=== PATIENT | male | born 1995 | race Hispanic/Latino ===

== ENCOUNTER 2017-02-20 20:10 | Emergency (ER) | payer MEDICAID ==
[2017-02-20 20:35] VITALS: BP 133/80; PULSE 69; RESP 21; TEMP 99.2; O2SAT 99
--- NOTE | 2017-02-20 20:46 | ED PDOC ---
HPI: Altered Mental Status Time Seen by Provider: 02/20/17 20:13 Chief Complaint (Nursing): Anxiety Chief Complaint (Provider): Chest pain History Per: Patient Additional Complaint(s): Pt is a 21 yo male, no PMH, complains of having "transient" symptoms of feeling whole upper body heaviness that went away after 5-6 minutes followed by residual left arm numbness. Pt is visibly anxious in triage. Reported shallow breathing earlier with no acute SOB. Pt notes all symptoms occurred after having "heavy phone call with a friend." Past Medical History Reviewed: Nursing Documentation, Vital Signs Vital Signs: Last Vital Signs Temp 99.2 F 02/20/17 20:32 Pulse 69 02/20/17 20:32 Resp 21 02/20/17 20:32 BP 133/80 02/20/17 20:32 Pulse Ox 99 02/20/17 20:32 - Medical History PMH: No Chronic Diseases - Surgical History Surgical History: No Surg Hx - Family History Family History: States: No Known Family Hx - Living Arrangements Living Arrangements: With Family - Social History Current smoker - smoking cessation education provided: No Alcohol: Social Drugs: Denies - Allergies Allergies/Adverse Reactions: Allergies Allergy/AdvReac Type Severity Reaction Status Date / Time No Known Allergies Allergy Verified 02/20/17 20:32 Review of Systems ROS Statement: Except As Marked, All Systems Reviewed And Found Negative Cardiovascular: Positive for: Chest Pain, Palpitations Respiratory: Positive for: Shortness of Breath Physical Exam - Reviewed Nursing Documentation Reviewed: Yes Vital Signs Reviewed: Yes - Physical Exam Appears: Positive for: Well, Non-toxic, No Acute Distress Head Exam: Positive for: ATRAUMATIC, NORMAL INSPECTION, NORMOCEPHALIC Skin: Positive for: Normal Color, Warm, DRY Eye Exam: Positive for: EOMI, Normal appearance, PERRL ENT: Positive for: Normal ENT Inspection Neck: Positive for: Normal, Painless ROM Cardiovascular/Chest: Positive for: Regular Rate, Rhythm Respiratory: Positive for: CNT, Normal Breath Sounds Gastrointestinal/Abdominal: Positive for: Normal Exam, Bowel Sounds, Soft Back: Positive for: Normal Inspection Extremity: Positive for: Normal ROM Neurologic/Psych: Positive for: Alert, Oriented - ECG O2 Sat by Pulse Oximetry: 99 Medical Decision Making Medical Decision Making: Physical exam results discussed with with pt who demonstrated full understanding EKG: NSR at 70 bpm, no axis deviation or acute ST changes, as read by ED MD CXR: NAD, as read by PAKatarina Pt concerned about possible CVA/ TIA. Signs and symptoms of both discussed at length, as well as indications for Head CT. Pt appeared calmer after discussion, asymptomatic on re-eval. stable for discharge Disposition - Clinical Impression Clinical Impression: Anxiety attack - Patient ED Disposition Is Patient to be Admitted: No - Disposition Disposition: Routine/Home Disposition Time: 23:02 Condition: STABLE Instructions: Anxiety (ED) Forms: [facility] (German)
--- NOTE | 2017-02-21 08:06 | CARD ---
APPROVED REPORT EKG Measurement Heart [id number] <Conclusion> Normal sinus rhythm Normal ECG
--- NOTE | 2017-02-21 10:21 | RAD ---
HISTORY: Chest pain COMPARISON: No prior. TECHNIQUE: Chest PA and lateral FINDINGS: LUNGS: No active pulmonary disease. PLEURA: No significant pleural effusion identified. No pneumothorax apparent. CARDIOVASCULAR: Normal. OSSEOUS STRUCTURES: No significant abnormalities. VISUALIZED UPPER ABDOMEN: Normal. OTHER FINDINGS: None. IMPRESSION: No active disease.
== END 2017-02-20 22:45 | disposition home or self-care (01) ==
LOC: H.ER 20:10
DX: F41.9 Anxiety disorder, unspecified (principal)